=== PATIENT | female | born 1990 | race Caucasian/White ===

== ENCOUNTER 2017-06-02 10:56 | Emergency (ER) | payer MEDICAID, MEDICARE ==
[~2017-06-02] VITALS: Ht 167.6 cm; Wt 74.8 kg
[~2017-06-02 10:56] MED LIST: PRENMIS9 PO
[2017-06-02 11:30] VITALS: RESP 18; TEMP 97.4
--- NOTE | 2017-06-02 11:32 | PD ---
HPI Chief Complaint abdominal cramping Date Seen: Jun 02, 2017 Travel History International Travel<30 Days: No Contact w/Intl Traveler<30Days: No History of Present Illness HPI Ms. Bonilla is a 26 yo G1 patient of [facility] at 31 weeks who presents with abdominal pain. Patient reports that she has had worsening abdominal pain over the past week; she states that this has especially been present for the past 3 days. Patient states that she feels her pains about once an hour. Patient does not report any associated vaginal bleeding or abnormal vaginal discharge; patient has some chronic clear discharge. Patient also reports mild nausea. No dysuria. No fevers or chills. Patient has also had slight/occasional lightheadedness over the past week. Patient does not report chest pain, shortness of breath, or leg swelling. No abnormal bowel movements. Patient reports that she has had a benign course without any complications. Records reviewed- patient with normal panel (O+ blood, no infectious disease or anemia) Para: 31 : 1 History Past Medical History Medical History: Denies Significant Hx Obstetric History Obstetric History G1 Past Surgical History Surgical History: No Previous Surgery Family History Narrative Family History Hyperlipidemia HTN T2DM Social History Alcohol Use: No Tobacco Use: No Substance Abuse: No Allergies-Medications (Allergen,Severity, Reaction): Coded Allergies: No Known Allergies (Unverified Adverse Reaction, Unknown, 05/27/17) Home Meds Active Scripts [id number]/Iron/Folic/Om3 ([facility]Care Dha Essential Pack) 27 Mg Iron-1 Mg- 374 Mg Cmbpkgdrcp, 1 CAPLET PO DAILY for 30 Days, #30 CAPLET 3 Refills Prov:Krista Montgomery CNM [facility] 03/31/17 Physical Exam BP 127/82 HR 107 Narrative GENERAL: Well-nourished, well-developed patient. SKIN: Warm and dry. HEAD: Normocephalic and atraumatic. EYES: No scleral icterus. No injection or drainage. ENT: No nasal drainage noted. Mucous membranes pink. Airway patent. NECK: Supple, trachea midline. No JVD. CARDIOVASCULAR: Regular rate and rhythm without murmurs RESPIRATORY: CTAB; normal rate ABDOMEN/GI: Abdomen soft, non-tender, bowel sounds present, no rebound, no guarding Gravid EXTREMITIES: No cyanosis or edema. NEUROLOGICAL: Awake and alert. Motor and sensory function grossly within normal limits. GENITOURINARY: External Genitalia: intact and normal in appearance Cervix: Dilatation: closed Effacement: non-effaced Station: -3 Membranes: Intact Uterine Contractions: irritability to none FHT's: Category: 1 Baseline: 150 Reactive: Y Variability: Mod Decels: None Data Data Orders Orders Vital Signs (Adult) .ON ADMISSION (06/02/17 11:31) ^ Labor Status (06/02/17 11:31) ^ Non Stress Test (06/02/17 11:31) Urinalysis - C+S If Indicated (06/02/17 11:31) MDM Medical Record Reviewed: Yes Narrative Course / MDM 26 yo G1 patient of [facility] at 31 weeks who presents with abdominal pain -Cat 1 rhythm -irritability, occasional uterine irritability on CTG -Reassuring vitals Plan: -Will check FFN due to uterine irritability in association with abdominal pain -Continue EFM, CTG Interval: -FFN negative -EFM reassuring, no contractions on CTG Updated plan: -Discussed with patient that her negative FFN in association with lack of regular contractions are reassuring. Patient encouraged to hydrate and rest at home and to follow-up with [facility] next week as scheduled. Patient agrees to return to OB ED with worsening pain, any concerns, vaginal bleeding, or other concerns Diagnosis Diagnosis: Primary Impression: Abdominal pain affecting Additional Impression: 31 weeks gestation of Disposition: 01 DISCHARGE HOME Condition: Stable James Miramontes MD, R3 Jun 02, 2017 11:32
[2017-06-02 12:31] LABS: BACTERIA, URINE OCC /hpf; BILIRUBIN, URINE NEG (NEG); BLOOD, URINE NEG (NEG); GLUCOSE,URINE NEG (NEG); KETONE, URINE NEG (NEG); MUCUS URINE FEW /lpf (OCC); NITRITE,URINE NEG (NEG); PH, URINE 6.5 (5.0-8.5); SQUAMOUS EPITHELIAL CELL URINE 7 /hpf (0-5); URINE COLOR YELLOW (YELLW/STRAW); URINE LEUKOCYTE ESTERASE MOD (NEG)
== END 2017-06-02 15:34 | disposition home or self-care (01) ==
LOC: HOBED 10:56
DX: O26.893 Other specified pregnancy related conditions, third trimester (principal); R10.9 Unspecified abdominal pain; Z3A.31 31 weeks gestation of pregnancy
CPT/HCPCS: 59025; 81001; 82731

== ENCOUNTER 2017-08-03 15:20 | Inpatient (IN) | payer MEDICAID ==
[2017-08-03] VITALS (31 sets, daily range): BP systolic 101–148; BP diastolic 63–86; PULSE 90–123; RESP 18–20; TEMP 98.1–99.1; O2SAT 100
[~2017-08-03] VITALS: Ht 167.6 cm; Wt 82.0 kg
[2017-08-03] MEDS: LACTATED RINGER'S 1000 ML INJ 1,000 ML IV SCH ×2 (16:10→20:51)
[2017-08-03] MEDS ORDERED: LACTATED RINGER'S 1000 ML INJ 1,000 ML IV PRN (16:10)
--- NOTE | 2017-08-03 16:10 | PD ---
HPI Chief Complaint Contractions Date Seen: Aug 03, 2017 Travel History International Travel<30 Days: No Contact w/Intl Traveler<30Days: No Known Affected Area: No History of Present Illness HPI Patient is a 26-year-old at 39/6 weeks gestation that presents to the [facility] with a chief complaint of contractions that began this morning 30 minutes after she lost her mucous plug at 11 AM. Initially the contractions were 11 minutes apart then became 8 minutes apart. She called her OB provider at [facility] who asked her to come into the ED. She denies any complaints today including vaginal bleeding, abnormal vaginal discharge, dysuria , and loss of fluid. She has been feeling her baby move. Notably, she is GBS negative. Weeks Gestation: 39 Para: 0 : 1 History Past Medical History Medical History: Denies Significant Hx Obstetric History Obstetric History No complications during this GBS- Past Surgical History Surgical History: No Previous Surgery Family History Narrative Family History Dad has hypertension and brother has asthma Strong family history of diabetes on her mother's side of the family Social History Alcohol Use: No Tobacco Use: No Substance Abuse: No Allergies-Medications (Allergen,Severity, Reaction): Coded Allergies: No Known Allergies (Unverified Adverse Reaction, Unknown, 08/03/17) Home Meds Active Scripts [id number]/Iron/Folic/Om3 ([facility] Dha Essential Pack) 27 Mg Iron-1 Mg- 374 Mg Cmbpkgdrcp, 1 CAPLET PO DAILY for 30 Days, #30 CAPLET 3 Refills Prov:Krista Montgomery CNM [facility] 03/31/17 Review of Systems General / Constitutional: No: Fever, Chills Eyes: No: Blurred Vision HENT: No: Headaches Cardiovascular: No: Chest Pain or Discomfort Respiratory: No: Short of Breath Gastrointestinal: Abdominal Pain, No: Nausea, Vomiting Genitourinary: No: Dysuria Skin: No Rash, No Itching Neurologic: No: Dizziness Physical Exam Narrative GENERAL: Well-nourished, well-developed patient. SKIN: Warm and dry. HEAD: Normocephalic and atraumatic. EYES: No scleral icterus. No injection or drainage. ENT: No nasal drainage noted. Mucous membranes pink. Airway patent. NECK: Supple, trachea midline. No JVD. CARDIOVASCULAR: Regular rate and rhythm without murmurs, gallops, or rubs. RESPIRATORY: Breath sounds equal bilaterally. No accessory muscle use. ABDOMEN/GI: Abdomen soft, non-tender, bowel sounds present, no rebound, no guarding Gravid to 39 weeks size GENITOURINARY: External Genitalia: intact and normal in appearance Cervix: Midposition Dilatation: 5cm Effacement: [70% Station: -2 Presentation: Vertex Membranes: intact Uterine Contractions: present Q2-4 mins FHT's: Category: I Baseline: 150 Reactive: Yes, mulitple accels present Variability: Moderate Decels: None EXTREMITIES: No cyanosis or edema. BACK: Nontender without obvious deformity. No CVA tenderness. NEUROLOGICAL: Awake and alert. Motor and sensory grossly within normal limits. Five out of 5 muscle strength in all muscle groups. Normal speech. Data Data Vital Signs Reviewed: No Group B Strep: Negative MDM Medical Record Reviewed: Yes Interpretation(s) 26-year-old in active labor Plan Intrauterine - heart tones category 1, reassuring -In active labor, vaginal exam: /-2 -Admit to L&D -Patient does not want an epidural but is okay with pitocin if needed -Expect vaginal delivery Discussed with Dr. Rothman Addendum: pt AROM at 1705, meconium-stained Eko,Shanell PERKINS Aug 03, 2017 16:10
[2017-08-03] MEDS ORDERED: SODIUM CHLORID 0.9% 500 ML INJ 500 ML IV PRN (16:15)
[2017-08-03] MEDS ORDERED: CITRIC ACID-SODIUM CITRATE LIQ 30 ML UDC PO SCH (16:15)
[2017-08-03] MEDS ORDERED: OXYTOCIN 30 UNITS-500ML PREMIX 500 ML IV ONE (16:15)
[2017-08-03] MEDS ORDERED: LIDOCAINE HCL 1% 50 ML VIAL I-DERMAL PRN (16:15)
[2017-08-03] MEDS ORDERED: LIDOCAINE HCL 1% 50 ML VIAL INFIL PRN (16:15)
[2017-08-03] MEDS ORDERED: MINERAL OIL 10 ML VIAL TOPICAL PRN (16:15)
[2017-08-03] MEDS ORDERED: ONDANSETRON HCL 4 MG/2 ML VIAL IV PUSH PRN (16:15)
[2017-08-03] MEDS ORDERED: SODIUM CHLOR 0.9% 1000 ML INJ 1,000 ML IV PRN (16:30)
[2017-08-03 16:55] LABS: AUTOMATED NEUTROPHIL # 15.7 TH/MM3 (1.8-7.7); BASOPHIL # 0.1 TH/MM3 (0-0.2); BASOPHIL % 0.5 % (0.0-2.0); EOSINOPHIL # 0.1 TH/MM3 (0-0.4); EOSINOPHIL % 0.5 % (0.0-4.0); HEMATOCRIT 37.8 % (35.0-46.0); HEMOGLOBIN 12.5 GM/DL (11.6-15.3); LYMPH % 8.9 % (9.0-44.0); LYMPHOCYTE # 1.6 TH/MM3 (1.0-4.8); MEAN CELL VOLUME 91.9 FL (80.0-100.0); MEAN CORPUSCULAR HEMOGLOBIN 30.3 PG (27.0-34.0); MONO % 4.5 % (0.0-8.0); MONOCYTE # 0.8 TH/MM3 (0-0.9); NEUT % 85.6 % (16.0-70.0); PLATELET COUNT 247 TH/MM3 (150-450); RED BLOOD COUNT 4.12 MIL/MM3 (4.00-5.30); RED CELL DISTRIBUTION WIDTH 13.1 % (11.6-17.2); WHITE BLOOD COUNT 18.3 TH/MM3 (4.0-11.0)
[2017-08-03 16:55] LABS: AMORPHOUS SEDIMENT, URINE RARE; BACTERIA, URINE OCC /hpf; BILIRUBIN, URINE NEG (NEG); BLOOD, URINE NEG (NEG); GLUCOSE,URINE NEG (NEG); KETONE, URINE 10 mg/dL (NEG); MUCUS URINE FEW /lpf (OCC); NITRITE,URINE NEG (NEG); SQUAMOUS EPITHELIAL CELL URINE 10 /hpf (0-5); URINE COLOR YELLOW (YELLW/STRAW); URINE LEUKOCYTE ESTERASE LARGE (NEG)
--- NOTE | 2017-08-03 17:13 | HHI.HP ---
History & Physical H&P [facility] OB ED Note (Detail) Patient Name: Austen Bonilla Unit Number: [id number] Date of : 1990 Patient Status: Admitted Inpatient Attending Doctor: Gloria Rothman MD HPI HPI Chief Complaint Contractions Date Seen: Aug 03, 2017 Travel History International Travel<30 Days: No Contact w/Intl Traveler<30Days: No Known Affected Area: No History of Present Illness HPI Patient is a 26-year-old at 39/6 weeks gestation that presents to the [facility] ED with a chief complaint of contractions that began this morning 30 minutes after she lost her mucous plug at 11 AM. Initially the contractions were 11 minutes apart then became 8 minutes apart. She called her OB provider at [facility] who asked her to come into the ED. She denies any complaints today including vaginal bleeding, abnormal vaginal discharge, dysuria , and loss of fluid. She has been feeling her baby move. Notably, she is GBS negative. Weeks Gestation: 39 Para: 0 : 1 History (Limited) History Past Medical History Medical History: Denies Significant Hx Obstetric History Obstetric History No complications during this GBS- Past Surgical History Surgical History: No Previous Surgery Family History Narrative Family History Dad has hypertension and brother has asthma Strong family history of diabetes on her mother's side of the family Social History Alcohol Use: No Tobacco Use: No Substance Abuse: No Allergies-Medications Allergies-Medications (Allergen,Severity, Reaction): Coded Allergies: No Known Allergies (Unverified Adverse Reaction, Unknown, 08/03/17) Home Meds Active Scripts [id number]/Iron/Folic/Om3 ([facility]-Care Dha Essential Pack) 27 Mg Iron-1 Mg- 374 Mg Cmbpkgdrcp, 1 CAPLET PO DAILY for 30 Days, #30 CAPLET 3 Refills Prov:Krista Montgomery CNM 03/31/17 ROS Review of Systems General / Constitutional: No: Fever, Chills Eyes: No: Blurred Vision HENT: No: Headaches Cardiovascular: No: Chest Pain or Discomfort Respiratory: No: Short of Breath Gastrointestinal: Abdominal Pain, No: Nausea, Vomiting Genitourinary: No: Dysuria Skin: No Rash, No Itching Neurologic: No: Dizziness Physical Exam Physical Exam Narrative GENERAL: Well-nourished, well-developed patient. SKIN: Warm and dry. HEAD: Normocephalic and atraumatic. EYES: No scleral icterus. No injection or drainage. ENT: No nasal drainage noted. Mucous membranes pink. Airway patent. NECK: Supple, trachea midline. No JVD. CARDIOVASCULAR: Regular rate and rhythm without murmurs, gallops, or rubs. RESPIRATORY: Breath sounds equal bilaterally. No accessory muscle use. ABDOMEN/GI: Abdomen soft, non-tender, bowel sounds present, no rebound, no guarding Gravid to 39 weeks size GENITOURINARY: External Genitalia: intact and normal in appearance Cervix: Midposition Dilatation: 5cm Effacement: [70% Station: -2 Presentation: Vertex Membranes: intact Uterine Contractions: present Q2-4 mins FHT's: Category: I Baseline: 150 Reactive: Yes, mulitple accels present Variability: Moderate Decels: None EXTREMITIES: No cyanosis or edema. BACK: Nontender without obvious deformity. No CVA tenderness. NEUROLOGICAL: Awake and alert. Motor and sensory grossly within normal limits. Five out of 5 muscle strength in all muscle groups. Normal speech. Data Data Data Vital Signs Reviewed: No Group B Strep: Negative MDM MDM Medical Record Reviewed: Yes Interpretation(s) 26-year-old in active labor Plan Intrauterine - heart tones category 1, reassuring -In active labor, vaginal exam: /-2 -Admit to L&D -Patient does not want an epidural but is okay with pitocin if needed -Expect vaginal delivery Discussed with Dr. Rothman Addendum: pt AROM at 1705, meconium-stained Eko,Shanell PERKINS Aug 03, 2017 17:13
[2017-08-03] MEDS ORDERED: fentaNYL 2MCG-BUPIV 0.125% INJ 100 ML ONE (20:17)
[2017-08-03] MEDS ORDERED: DO NOT ADMINISTER ANTICOAGULANTS PRN (21:00)
[2017-08-03] MEDS ORDERED: ePHEDrine/NS 25 MG/5 ML SYRINGE IV PUSH PRN (21:00)
[2017-08-03] MEDS ORDERED: NO SYSTEM NARCOTICS PRN (21:00)
[2017-08-03] MEDS ORDERED: fentaNYL 2MCG-BUPIV 0.125% 100 ML EPIDURAL SCH (21:00)
[2017-08-03] MEDS ORDERED: LIDOCAINE HCL 1.5% PF 20 ML AMP ONE (22:57)
[2017-08-03] MEDS ORDERED: LIDOCAINE HCL 1% 20 ML VIAL ONE (23:07)
[2017-08-04] VITALS (21 sets, daily range): BP systolic 107–142; BP diastolic 59–81; PULSE 81–119; RESP 16–18; TEMP 98–99.2; O2SAT 99
--- NOTE | 2017-08-04 01:23 | PD.OB.DELI ---
Weeks gestation: 39 Gest age assessed date: Aug 04, 2017 Gest age assessed time: 01:22 Pt started active labor?: Yes Active labor start date: Aug 04, 2017 Medical induction of labor?: No Artificial rupture of membrane: Yes Anesthesia: Epidural Episiotomy: None Vaginal Delivery: Normal, Spontaneous Presentation: Occiput anterior, Vertex Nuchal Cord: None Delayed cord clamping (45 sec): Yes Infant: Female Delivery date: Aug 04, 2017 Delivery time: 01:09 One Minute : 8 Five Minute : 9 Placenta: Spontaneous delivery, Intact, 3 vessel cord Laceration: Vaginal laceration (right sidewall to vaginal introitus) Repair: Chromic running Estimated blood loss: 300cc Gloria Rothman MD Aug 04, 2017 01:23
[2017-08-04] MEDS ORDERED: BENZOCAINE 20% TOPICAL SPRAY 60 ML CAN TOPICAL PRN (01:30)
[2017-08-04] MEDS ORDERED: SODIUM CHLORIDE 0.9% FLUSH 10 ML FLUSH IV FLUSH PRN (01:30)
[2017-08-04] MEDS ORDERED: oxyCODONE/ACETAMINOPHEN 5 MG/325 MG TAB PO PRN ×2 (01:30)
[2017-08-04] MEDS ORDERED: WITCH HAZEL 50%/GLYCERIN 12.5% 40 PAD JAR TOPICAL PRN (01:30)
[2017-08-04] MEDS ORDERED: DOCUSATE SODIUM 50 MG/SENNA 8.6 MG TAB PO PRN (01:30)
[2017-08-04] MEDS ORDERED: ONDANSETRON ODT 4 MG TAB PO PRN (01:30)
[2017-08-04] MEDS ORDERED: ALUMINUM/MAGNESIUM/SIMETH 30 ML CUP PO PRN (01:30)
[2017-08-04] MEDS ORDERED: OXYTOCIN 30 UNITS-500ML PREMIX 500 ML IV SCH (01:30)
[2017-08-04] MEDS ORDERED: ACETAMINOPHEN 325 MG TAB PO PRN (01:30)
--- NOTE | 2017-08-04 07:02 | HHI.OB ---
Subjective Post Day: 0 Remarks day # 0. AFVSS overnight. Pain well controlled. Lochia less than a period. Denies dysuria. No breast tenderness. She is feeding the baby via breast. Appetite good. No nausea or vomiting. Negative flatus. Negative bowel movement. Ambulating well. Denies calf pain, shortness of breath, or chest pain. Otherwise, she is doing well this morning and has no other complaints. Objective Vitals/I&O Vital Signs Date Time Temp Pulse Resp B/P (MAP) Pulse Ox O2 Delivery O2 Flow Rate FiO2 08/04/17 04:15 98.0 106 18 119/75 (90) 08/04/17 03:45 116 113/75 (88) 08/04/17 03:30 96 118/73 (88) 08/04/17 03:15 101 108/62 (77) 08/04/17 03:00 91 117/66 (83) 08/04/17 03:00 16 08/04/17 02:45 99 122/71 (88) 08/04/17 02:30 98 113/68 (83) 08/04/17 02:28 16 08/04/17 02:15 100 117/64 (81) 08/04/17 02:00 106 125/67 (86) 08/04/17 01:45 100 121/64 (83) 08/04/17 01:30 106 115/67 (83) 08/04/17 01:27 106 118/66 (83) 08/04/17 01:25 99.2 16 08/04/17 01:18 114 116/59 (78) 08/04/17 01:10 119 99 08/04/17 00:40 107 99 08/04/17 00:30 101 139/78 (98) 08/04/17 00:00 95 142/76 (98) 08/03/17 23:30 90 133/67 (89) 08/03/17 23:00 92 135/70 (91) 08/03/17 22:43 98.1 08/03/17 22:31 91 148/83 (104) 08/03/17 22:15 98 148/79 (102) 08/03/17 22:00 101 142/85 (104) 08/03/17 21:48 18 08/03/17 21:46 101 122/76 (91) 08/03/17 21:15 104 129/73 (91) 08/03/17 21:10 99.1 98 08/03/17 21:05 123 08/03/17 21:00 97 08/03/17 21:00 95 119/73 (88) 08/03/17 20:55 95 08/03/17 20:50 100 08/03/17 20:48 97 139/77 (97) 08/03/17 20:46 105 130/78 (95) 08/03/17 20:45 102 100 08/03/17 20:44 101 139/73 (95) 08/03/17 20:42 101 126/73 (90) 08/03/17 20:40 103 08/03/17 20:40 105 101/63 (76) 08/03/17 20:39 107 130/82 (98) 08/03/17 20:35 105 08/03/17 20:30 109 20 137/83 (101) 08/03/17 20:30 109 08/03/17 20:25 106 08/03/17 20:06 105 126/85 (99) 08/03/17 19:23 98.1 102 18 129/81 (97) 08/03/17 18:34 101 134/86 (102) 08/03/17 18:30 18 08/03/17 18:00 18 08/03/17 17:30 98.2 08/03/17 16:59 18 Objective Remarks GENERAL: Well-nourished, well-developed patient. CARDIOVASCULAR: Regular rate and rhythm without murmurs, gallops, or rubs. RESPIRATORY: Breath sounds equal bilaterally. No accessory muscle use. ABDOMEN/GI: Abdomen soft, non-tender. Fundus: Firm, non-tender below umbilicus. GENITOURINARY: Light to moderate bleeding. EXTREMITIES: No cyanosis or edema, non-tender, without signs of DVT. Medications and IVs Current Medications Medications (Trade) Dose Ordered Sig/Saima Route Start Time Stop Time Status Last Admin Lactated Ringer's 1,000 ml @ 125 mls/hr Q8H IV 08/03/17 16:10 08/03/17 20:51 Lactated Ringer's 1,000 ml @ 3,000 mls/hr Q20M PRN IV 3/19/18 16:10 08/03/17 20:50 Sodium Chloride 500 ml @ 1,000 mls/hr ONCE PRN IV 08/03/17 16:15 08/05/17 16:14 Sodium Chloride 1,000 ml @ 100 mls/hr Q10H PRN IV 08/03/17 16:30 (Xylocaine 1% Inj (50 ml)) 0.1 ml UNSCH X1 PRN I-DERMAL 08/03/17 16:15 08/06/17 16:14 (Bicitra Liq) 30 ml CONTROL OFFICER MANAGER PO 08/03/17 16:15 08/07/17 16:14 (Zofran Inj) 4 mg Q6H PRN IV PUSH 08/03/17 16:15 (fentaNYL INJ) 50 mcg Q1H PRN IV PUSH 08/03/17 16:15 (fentaNYL INJ) 100 mcg Q1H PRN IV PUSH 08/03/17 16:15 (Xylocaine 1% Inj (50 ml)) 10 ml UNSCH X1 PRN INFIL 08/03/17 16:15 08/05/17 16:14 (Muri-Lube Oil) 10 ml UNSCH PRN TOPICAL 08/03/17 16:15 Miscellaneous Information No systemic narcotics to be given except... UNSCH PRN .XX 08/03/17 21:00 08/04/17 20:59 Miscellaneous Information DO NOT ADMINISTER ANY ANTICOAGUL... UNSCH PRN .XX 08/03/17 21:00 08/04/17 20:59 Fentanyl/ Bupivacaine HCl 100 ml @ 0 mls/hr TITRATE EPIDURAL 08/03/17 21:00 (ePHEDrine/NS 25 MG/5 ML SYR) 10 mg UNSCH PRN IV PUSH 08/03/17 21:00 08/04/17 20:59 (NS Flush) 2 ml BID IV FLUSH 08/04/17 09:00 (NS Flush) 2 ml UNSCH PRN IV FLUSH 08/04/17 01:30 (Tylenol) 650 mg Q4H PRN PO 08/04/17 01:30 (Motrin) 800 mg Q8H PRN PO 08/04/17 01:30 (Percocet 5-325 Mg) 1 tab Q4H PRN PO 08/04/17 01:30 (Percocet 5-325 Mg) 2 tab Q4H PRN PO 08/04/17 01:30 (Americaine 20% Top Spr) 1 spray Q4H PRN TOPICAL 08/04/17 01:30 (Tucks Pads) 1 applic QID PRN TOPICAL 08/04/17 01:30 (Kiya-Colace) 2 tab Q12H PRN PO 08/04/17 01:30 (M-M-R Ii Inj) 0.5 ml ONCE ONCE SQ 08/04/17 16:00 08/04/17 16:01 (Boostrix Inj) 0.5 ml ONCE ONCE IM 08/04/17 16:00 08/04/17 16:01 (Mag-Al Plus Susp Liq) 15 ml Q8H PRN PO 08/04/17 01:30 (Zofran Odt) 4 mg Q6H PRN PO 08/04/17 01:30 Assessment/Plan Assessment and Plan 26 y/o female who is PPD#0 s/p -Continue routine care -Motrin and Percocet PRN for pain -Pericolase PRN for constipation -Encouraged OOB. Advised pelvic rest for 6 wks -Will need a follow-up appointment within 6 wks for post- check -Re: ctrl - did not discuss yet Discussed with Dr. Rothman Discharge Planning Discharge home in 1-2 days Shanell Blunt MD Aug 04, 2017 07:02
[2017-08-04] MEDS: IBUPROFEN 800 MG TAB PO PRN ×2 (07:45→19:33)
[2017-08-04] MEDS ORDERED: SODIUM CHLORIDE 0.9% FLUSH 10 ML FLUSH IV FLUSH SCH (09:00)
[2017-08-04] MEDS ORDERED: MEASLES, MUMPS, RUBELLA VACCINE 0.5 ML VIAL SQ ONE (16:00)
[2017-08-04] MEDS ORDERED: DIPHTH/TETANUS/ACEL PERTUSSIS (BOOSTER) 0.5 ML VIAL/PFS IM ONE (16:00)
[2017-08-05] MEDS ORDERED: IBUP1TAB7 PO (07:13)
--- NOTE | 2017-08-05 07:13 | HHI.DCPOC ---
Discharge Care Plan Diagnosis: (1) Vaginal delivery Report Symptoms to Your Doctor -Temperature above 100.5 degrees -Redness, of incision or excessive or foul smelling drainage -Unusual pain or calf pain -Increased vaginal bleeding -Painful or difficulty urinating -Feelings of extreme sadness or anxiety after 2 weeks Goals to Promote Your Health * To prevent worsening of your condition and complications * To maintain your health at the optimal level Directions to Meet Your Goals Take your medications as prescribed Follow your dietary instruction Follow activity as directed Ensure plenty of rest for recovery Drink fluids for hydration Keep your appointments as scheduled Take your immunizations and boosters as scheduled If your symptoms worsen call your PCP, if no PCP go to Urgent Care Center or Emergency Room Smoking is Dangerous to Your Health. Avoid second hand smoke Call the 24-hour crisis hotline for domestic abuse at Shanell Blunt MD Aug 05, 2017 07:13
--- NOTE | 2017-08-05 07:15 | HHI.OB ---
Subjective Post Day: 1 Remarks day # 1. AFVSS overnight. Pain well controlled. Lochia less than a period. Denies dysuria. No breast tenderness. She is feeding the baby via breast. Appetite good. No nausea or vomiting. Positive flatus. Positive bowel movement. Ambulating well. Denies calf pain, shortness of breath, or chest pain. Otherwise, she is doing well this morning and has no other complaints. Objective Vitals/I&O Vital Signs Date Time Temp Pulse Resp B/P (MAP) Pulse Ox O2 Delivery O2 Flow Rate FiO2 08/04/17 20:00 98.3 81 18 107/75 (86) 08/04/17 08:00 107 120/81 (94) 08/04/17 08:00 98.6 18 Objective Remarks GENERAL: Well-nourished, well-developed patient. CARDIOVASCULAR: Regular rate and rhythm without murmurs, gallops, or rubs. RESPIRATORY: Breath sounds equal bilaterally. No accessory muscle use. ABDOMEN/GI: Abdomen soft, non-tender. Fundus: Firm, non-tender below umbilicus. GENITOURINARY: Light to moderate bleeding. EXTREMITIES: No cyanosis or edema, non-tender, without signs of DVT. Medications and IVs Current Medications Medications (Trade) Dose Ordered Sig/Saima Route Start Time Stop Time Status Last Admin Lactated Ringer's 1,000 ml @ 125 mls/hr Q8H IV 08/03/17 16:10 08/03/17 20:51 Lactated Ringer's 1,000 ml @ 3,000 mls/hr Q20M PRN IV 08/03/17 16:10 08/03/17 20:50 Sodium Chloride 500 ml @ 1,000 mls/hr ONCE PRN IV 08/03/17 16:15 08/05/17 16:14 Sodium Chloride 1,000 ml @ 100 mls/hr Q10H PRN IV 08/03/17 16:30 (Xylocaine 1% Inj (50 ml)) 0.1 ml UNSCH X1 PRN I-DERMAL 08/03/17 16:15 08/06/17 16:14 (Bicitra Liq) 30 ml SETTER HELPER PO 08/03/17 16:15 08/07/17 16:14 (Zofran Inj) 4 mg Q6H PRN IV PUSH 08/03/17 16:15 (fentaNYL INJ) 50 mcg Q1H PRN IV PUSH 08/03/17 16:15 (fentaNYL INJ) 100 mcg Q1H PRN IV PUSH 08/03/17 16:15 (Xylocaine 1% Inj (50 ml)) 10 ml UNSCH X1 PRN INFIL 08/03/17 16:15 08/05/17 16:14 (Muri-Lube Oil) 10 ml UNSCH PRN TOPICAL 08/03/17 16:15 Fentanyl/ Bupivacaine HCl 100 ml @ 0 mls/hr TITRATE EPIDURAL 08/03/17 21:00 (NS Flush) 2 ml BID IV FLUSH 08/04/17 09:00 (NS Flush) 2 ml UNSCH PRN IV FLUSH 08/04/17 01:30 (Tylenol) 650 mg Q4H PRN PO 08/04/17 01:30 (Motrin) 800 mg Q8H PRN PO 08/04/17 01:30 08/04/17 19:33 (Percocet 5-325 Mg) 1 tab Q4H PRN PO 08/04/17 01:30 (Percocet 5-325 Mg) 2 tab Q4H PRN PO 08/04/17 01:30 (Americaine 20% Top Spr) 1 spray Q4H PRN TOPICAL 08/04/17 01:30 08/04/17 19:33 (Tucks Pads) 1 applic QID PRN TOPICAL 08/04/17 01:30 08/04/17 19:33 (Kiya-Colace) 2 tab Q12H PRN PO 08/04/17 01:30 08/04/17 07:45 (Mag-Al Plus Susp Liq) 15 ml Q8H PRN PO 08/04/17 01:30 (Zofran Odt) 4 mg Q6H PRN PO 08/04/17 01:30 Assessment/Plan Assessment and Plan 26 y/o female who is PPD#1 s/p -Continue routine care -Motrin and Percocet PRN for pain -Pericolase PRN for constipation -Encouraged OOB. Advised pelvic rest for 6 wks -Will need a follow-up appointment within 6 wks for post- check -Re: ctrl - considering Mirena Discussed with Dr. Badillo Discharge Planning Discharge home in 1-2 days Eko,Shanell MD Aug 05, 2017 07:15
[2017-08-05 08:00] VITALS: BP 113/71; PULSE 88; RESP 18; TEMP 97.9
== END 2017-08-05 13:04 | disposition home or self-care (01) | DRG 775 ==
LOC: HOBED 15:20 → H2EA 16:10 → H1EA 08-04 05:05
PROVIDERS: ADMIT Obstetrics & Gynecology Obstetrics; ATTEND Obstetrics & Gynecology Obstetrics
PROC: 10907ZC Drainage of Amniotic Fluid, Therapeutic from Products of Conception, Via Natural or Artificial Opening (ICD-10-PCS; 2017-08-03)
PROC: 3E0R3BZ Introduction of Anesthetic Agent into Spinal Canal, Percutaneous Approach (ICD-10-PCS; 2017-08-03)
PROC: 00HU33Z Insertion of Infusion Device into Spinal Canal, Percutaneous Approach (ICD-10-PCS; 2017-08-03)
PROC: 10E0XZZ Delivery of Products of Conception, External Approach (ICD-10-PCS; principal; 2017-08-04)
PROC: 0KQM0ZZ Repair Perineum Muscle, Open Approach (ICD-10-PCS; 2017-08-04)
DX: O77.0 Labor and delivery complicated by meconium in amniotic fluid (principal); O71.4 Obstetric high vaginal laceration alone; Z3A.39 39 weeks gestation of pregnancy; Z37.0 Single live birth; Z83.3 Family history of diabetes mellitus
CPT/HCPCS: 59025; 80307; 81001; 85025; 86900; 86901; 87086; J2590; J7120